=== PATIENT | female | born 1950 | race Caucasian/White ===

== ENCOUNTER → 2018-02-11 13:42 | Outpatient (CLI) | payer MEDICARE, SELFPAY ==
--- NOTE | 2018-02-11 13:52 | CT_ITS ---
STUDY: LOW DOSE CT LUNG CANCER SCREENING REASON FOR EXAM: Female, 67 years old. Tobacco use. Lung cancer screening. RADIATION DOSAGE (If Supplied By Facility): CTDIvol = ( 2.01 ) mGy, DLP = ( 58.41 ) mGycm TECHNIQUE: No contrast was administered. Low dose technique was utilized (average mAS-38 and kVp 120). 1.25 mm axial source images with a slice interval of 1.25-mm were reconstructed in lung windows. Nodule measured using lung windows on PACS and/or independent workstation with automated measurement of minimum and maximum diameter. Nodule measurement reported as average diameter rounded to the nearest whole number. Growth is defined as an increase ins size of greater than 1.5 mm. COMPARISON: None. FINDINGS: Total lung nodules (excluding granulomas): Left lung, no pulmonary nodules. Right lung, in the anterior segment of the right upper lobe, adjacent to the right anterior lateral pleural margin, there are 2 adjacent pulmonary nodules. The largest measures 8 to 9 mm. The other measures 4 mm. Solid features. The smaller has a more oval morphology. The larger is oval with mild spiculation. These nodules are best appreciated on series 2, image 90. Medley images are saved to the PACs archive for reference. Emphysema: Generalized pulmonary hyperlucency consistent with COPD with features of centrilobular emphysema at the apices. Endobronchial lesion: None. Aorta: Nondilated aorta. Minimal atherosclerosis. Coronary arteries: Moderate three-vessel coronary calcifications most prominent in the LAD. Heart: Normal heart size without effusion. Pulmonary artery: Nondilated. Mediastinal nodes: No mediastinal or hilar lymphadenopathy. Other chest and abdominal findings: No acute upper abdominal or other thoracic process. Thoracic scoliosis, osteopenia, and mild spondylosis with kyphosis of the midthoracic spine. No acute osseous process. CT/Low Dose CT Lung Screening IMPRESSION: 1. Emphysema/COPD. 2. There are 2 right-sided pulmonary nodules. The largest measures 8 to 9 mm and exhibits spiculation. Nodules are closely adjacent to one another. Lung RADS classification Category 4X (due to nodule size and spiculation). 3. Consider either follow-up PET/CT, or further characterization of the nodule with CT chest with IV contrast. Tissue sampling can also be considered. This should be readily amenable to CT-guided biopsy if desired. Primary lung neoplasm must be excluded. IMPORTANT NOTES FOR USE: ACR Lung-RADS Version 1.0 Assessment Categories Release Date: January 17, 2014 Category: Coded 0-4 bases on nodule(s) with highest degree of suspicion. Negative screen is defined as categories 1 and 2; a positive screen is defined as categories 3 and 4. Category 3 and 4A nodules that are unchanged on interval CT should be coded as category 2, and individuals returned to screening in 12 months. Category 4X: Category 3 or 4 nodules with additional imaging findings that increase the suspicion of lung cancer, such as spiculation, GGN that doubles in size in 1 year, enlarged lymph notes, etc. Category Modifiers: S (significant finding unrelated to lung cancer) and C (prior history of treated lung cancer) may be added to the 0-4 Lung-RADS Electronically Signed: Ten Lopez, at 17:46 EDT Tel , Service support ,
== END ==
PROVIDERS: Family Provider Family Medicine; PCP Family Medicine; Visit Provider Internal Medicine Pulmonary Disease
DX: Z87.891 Personal history of nicotine dependence (principal)
CPT/HCPCS: G0297

== ENCOUNTER → 2018-03-16 08:35 | Outpatient (CLI) | payer MEDICARE, SELFPAY ==
--- NOTE | 2018-03-16 08:00 | PET_ITS ---
EXAMINATION: FDG PET CT INDICATIONS: A 67-year-old female with reported history of pulmonary nodularity. COMPARISON EXAMINATION: CT of the chest report dated 02/11/18. INDEX LESION SIZE SUV INTERPRETATION Right hemithorax pulmonary parenchyma, right upper lobe (n = 2) 8.1 mm largest (frame 181) 2.7 (max) Fulfills quantitative criteria for viable neoplasm, histopathologic analysis recommended TECHNIQUE: Following the intravenous administration of 14.41 mCi of F-18 deoxyglucose via the left hand, multiplanar image acquisitions of the neck, chest, abdomen and pelvis to level of mid thigh, obtained at one hour post radiopharmaceutical administration contemporaneously interpreted with the current CT of the neck, chest, abdomen and pelvis to level of mid thigh, dated 03/16/[address] of the chest report dated 02/11/18 reveal: SERUM GLUCOSE LEVEL: 85 mg/dl. HEIGHT: 60 inches. WEIGHT: 110 lbs. FINDINGS: 1. Increased glucose metabolism is defined in the right mid anterior hemithorax pulmonary parenchyma, right upper lobe in two separate nodular presentations closely approximating one another with a calculated maximum standard uptake value of 2.7. The maximal axial diameter of the largest parenchymal density on review of CT of the thorax dated 03/16/18 is 8.1 mm (transverse). 2. Normal physiologic distribution of the radiopharmaceutical is apparent in the hepatic (2.3) and splenic parenchyma, both renal units, bladder and visualized intestinal tract. There is uniform distribution of the radiopharmaceutical concentration compared on the cerebellar hemispheres and cerebral cortex. Diffuse intestinal tract activity is noted throughout all four quadrants of the abdominal-pelvic retroperitoneum, mesentery consistent with normal physiologic distribution of the radiopharmaceutical. Pertinent CT findings are as follows. CHEST: Emphysematous changes are noted in the bilateral upper lung zones. Atherosclerotic calcification is defined in the thoracic aorta without evidence of dilatation, aneurysm formation. Coronary arterial calcification is observed. Right-left axillary and scattered mediastinal soft tissue densities are non-glucose avid. ABDOMEN AND PELVIS: An attenuation abnormality defined within the right lobe of the hepatic parenchyma demonstrates photopenia on the metabolic data set consistent with cyst formation. Atherosclerotic calcification is defined in the abdominal aorta without evidence of dilatation, aneurysm formation. Pelvic arterial calcification is observed. Calcified phlebolith formation is noted in the left lower hemipelvis. Right-left subcentimeter inguinal soft tissue densities demonstrate no evidence of quantitatively significant increased glucose metabolism. A subtle focus of enhanced glucose concentration is noted in the right inguinal region on review of the metabolic data set generating a calculated maximum standard uptake value of 1.3. Quantitative criteria for viable neoplasm are not fulfilled. SKELETAL: Degenerative changes defined in the cervical, thoracic and lumbar spine demonstrate no evidence for glucose hypermetabolism. PET/PET/CT Tumor Base -Thigh Init IMPRESSION: 1. Increased glucose metabolism manifest in the right mid anterolateral hemithorax pulmonary parenchyma, right upper lobe fulfills quantitative criteria for viable neoplasm. Definitive histopathologic analysis is recommended. (Vielka et al, Annals of Internal Medicine, 138:724, 2003). Electronic Signature Ten Harmon D.O. Electronically Signed: Ten Harmon DO at 23:40 EDT Tel , Service support ,
== END ==
PROVIDERS: Family Provider Family Medicine; PCP Family Medicine; Visit Provider Internal Medicine Pulmonary Disease
DX: R91.8 Other nonspecific abnormal finding of lung field (principal)
CPT/HCPCS: 78815; A9552; A4216